=== PATIENT | female | born 1990 | race Caucasian/White ===

== ENCOUNTER → 2017-02-06 | Outpatient (CLI) | payer OTHER ==
[2017-02-06 16:39] LABS: Basophils # (A) 0.1 k/uL (0-0.2); Basophils % (A) 1 %; CH 29.4; CHCM 33.5; Eosinophils # (A) 0.2 k/uL (0-0.7); Eosinophils % (A) 3 %; HDW 2.62; HGB 14.1 gm/dL (11.4-16.0); Luc # (Auto) 0.19; Luc % (Auto) 3; Lymphocytes # (A) 1.8 k/uL (1.0-4.8); Lymphocytes % (A) 25 %; MCH 29.6 pg (25.0-35.0); MCHC 33.5 g/dL (31.0-37.0); MCV 88.3 fL (80.0-100.0); Mean Platelet Volume 7.7; Monocytes # (A) 0.6 k/uL (0-1.0); Monocytes % (A) 8 %; Neutrophils # (A) 4.4 k/uL (1.3-7.7); Neutrophils % (A) 61 %; RBC 4.76 m/uL (3.80-5.40); WBC 7.2 k/uL (3.8-10.6); WBC (Perox) 7.69
[2017-02-06 16:47] LABS: ALT 19 U/L (9-52); AST 20 U/L (14-36); Alkaline Phosphatase 64 U/L (38-126); Amylase 71 U/L (30-110); Anion Gap 12 mmol/L; Blood Urea Nitrogen 7 mg/dL (7-17); Calcium 9.7 mg/dL (8.4-10.2); Carbon Dioxide 27 mmol/L (22-30); Chloride 102 mmol/L (98-107); Glucose 79 mg/dL (74-99); Non-African American GFR(MDRD) >60 (>60 ml/min/1.73 sqM); Potassium 3.7 mmol/L (3.5-5.1); Sodium 141 mmol/L (137-145); Total Bilirubin 0.6 mg/dL (0.2-1.3); Total Protein 7.7 g/dL (6.3-8.2)
== END ==
LOC: MMGSC 11:58
PROVIDERS: ATTEND Family Medicine
DX: R10.9 Unspecified abdominal pain (principal); R11.0 Nausea
CPT/HCPCS: 36415; 80053; 82150; 83690; 85025

== ENCOUNTER → 2018-08-06 | Outpatient (CLI) | payer OTHER ==
--- NOTE | 2018-08-06 09:22 | US ---
EXAMINATION TYPE: US abdomen complete DATE OF EXAM: 08/06/2018 COMPARISON: NONE CLINICAL HISTORY: Abd Pain R10.9 N83.209 ovarian cyst. epigastric pain; on new brand oral contracepti ves EXAM MEASUREMENTS: Liver Length: 16.3 cm Gallbladder Wall: 0.2 cm CBD: 0.2 cm Spleen: 9.9 cm Right Kidney: 11.1 x 4.6 x 4.2 cm Left Kidney: 11.0 x 5.2 x 5.9 cm Pancreas: wnl Liver: mild coarse appearance Gallbladder: wnl Evidence for sonographic Ballard's sign: no CBD: wnl Spleen: wnl Right Kidney: wnl Left Kidney: wnl Upper IVC: wnl Abd Aorta: wnl Visualized liver is slightly heterogeneous on images saved. The intrahepatic portion of the IVC and visualized abdominal aorta are within normal limits. There is no evidence of cholelithiasis. Common bile duct is unremarkable. The visualized portions of the pancreas are homogenous. The spleen is unremarkable. Kidneys are symmetric and free of hydronephros is. No renal lesions are seen. IMPRESSION: No suspicious acute finding is seen to account for patient's symptoms.
--- NOTE | 2018-08-06 09:51 | US ---
EXAMINATION TYPE: US pelvis complete transvag DATE OF EXAM: 08/06/2018 COMPARISON: NONE CLINICAL HISTORY: Abd Pain R10.9 N83.209 ovarian cyst. TECHNIQUE: . Transabdominal sonographic images of the pelvis were acquired. Transvaginal sonographi c images were medically necessary to better assess the following anatomy: Patient opted for TV, she c ould not tolerate filling bladder further. Date of LMP: 06/13/2018 EXAM MEASUREMENTS: Uterus: 8.4 x 3.2 x 5.0 cm Endometrial Stripe: 0.4 cm Right Ovary: 1.3 x 1.9 x 2.4 cm Left Ovary: 1.5 x 1.6 x 2.0 cm 1. Uterus: Anteverted 2. Endometrium: wnl 3. Right Ovary: wnl 4. Left Ovary: wnl 5. Bilateral Adnexa: wnl 6. Posterior cul-de-sac: no free fluid Anteverted heterogeneous uterus is seen. No suspicious thickening of endometrial stripe. No free flui d in pelvic cul-de-sac. Both ovaries are seen on transvaginal investigation. No suspicious extraovari an adnexal mass is noted. IMPRESSION: No significant finding is seen to account for patient's symptoms.
== END | disposition home or self-care (01) ==
LOC: RADUSWWP 08:14
PROVIDERS: ATTEND Family Medicine
DX: R10.9 Unspecified abdominal pain (principal)
CPT/HCPCS: 76700; 76830; 76856

== ENCOUNTER 2018-08-16 22:12 | Emergency (ER) | payer OTHER ==
[2018-08-16 22:17] VITALS: BP 124/75; PULSE 91; RESP 24; TEMP 97.7
--- NOTE | 2018-08-16 22:57 | ED ---
Psych HPI - General Source: patient, family, RN notes reviewed, old records reviewed Mode of arrival: ambulatory - History of Present Illness MD Complaint: suicidal ideation, feels depressed -: unknown Associated Psychiatric Symptoms: suicidal ideation Quality: constant Improves With: medication, therapy Worsens With: none Associated Symptoms: denies other symptoms Treatments Prior to Arrival: none If Self Harm: admits thoughts of self harm <Rodolfo Bush - Last Filed: 08/16/18 22:56> <Chapito Rodney - Last Filed: 08/17/18 02:00> - General Chief Complaint: Psychiatric Symptoms Stated Complaint: Mental Health Time Seen by Provider: 08/16/18 22:56 - History of Present Illness Initial Comments: This is a 28-year-old female the ER for evaluation by psychiatry. Patient's brought in by parents for mental health evaluation she has history of bipolar, patient is coming with suicidal thoughts and ideation, denies drugs rel call use , no recent change in medications. (Rodolfo Bush) - Related Data Home Medications Medication Instructions Recorded Confirmed Folic Acid 0.4 mg PO DAILY 03/06/15 10/30/15 Vit No.124/Iron/Folic 1 each PO DAILY 03/06/15 10/30/15 [ Vitamin Tablet] Sertraline HCl [Zoloft] 50 mg PO DAILY 10/26/15 10/30/15 LORazepam [Ativan] 1 mg PO DAILY PRN 08/16/18 08/16/18 OXcarbazepine [Trileptal] 300 mg PO [id number] 08/16/18 08/16/18 OXcarbazepine [Trileptal] 450 mg PO HS 08/16/18 08/16/18 Allergies Allergy/AdvReac Type Severity Reaction Status Date / Time No Known Allergies Allergy Verified 08/16/18 22:17 Review of Systems ROS Other: All systems not noted in ROS Statement are negative. <Rodolfo Bush - Last Filed: 08/16/18 22:56> ROS Other: All systems not noted in ROS Statement are negative. <Chapito Rodney - Last Filed: 08/17/18 02:00> ROS Statement: Those systems with pertinent positive or pertinent negative responses have been documented in the HPI. Past Medical History Past Medical History: Asthma, Thyroid Disorder History of Any Multi-Drug Resistant Organisms: None Reported Additional Past Surgical History / Comment(s): right knee Past Anesthesia/Blood Transfusion Reactions: No Reported Reaction Past Psychological History: Bipolar Smoking Status: Never smoker Past Alcohol Use History: None Reported Past Drug Use History: None Reported - Past Family History Mother Family Medical History: No Reported History <Rodolfo Bush - Last Filed: 08/16/18 22:56> General Exam Limitations: no limitations General appearance: alert, in no apparent distress Head exam: Present: atraumatic, normocephalic, normal inspection Eye exam: Present: normal appearance, PERRL, EOMI. Absent: scleral icterus, conjunctival injection, periorbital swelling ENT exam: Present: normal exam, mucous membranes moist Neck exam: Present: normal inspection. Absent: tenderness, meningismus, lymphadenopathy Respiratory exam: Present: normal lung sounds bilaterally. Absent: respiratory distress, wheezes, rales, rhonchi, stridor Cardiovascular Exam: Present: regular rate, normal rhythm, normal heart sounds. Absent: systolic murmur, diastolic murmur, rubs, gallop, clicks GI/Abdominal exam: Present: soft, normal bowel sounds. Absent: distended, tenderness, guarding, rebound, rigid Extremities exam: Present: normal inspection, full ROM, normal capillary refill. Absent: tenderness, pedal edema, joint swelling, calf tenderness Back exam: Present: normal inspection Neurological exam: Present: alert, oriented X3, CN II-XII intact Psychiatric exam: Present: normal affect, normal mood Skin exam: Present: warm, dry, intact, normal color. Absent: rash <Rodolfo Bush - Last Filed: 08/16/18 22:56> Course <Rodolfo Bush - Last Filed: 08/16/18 22:56> <Chapito Rodney - Last Filed: 08/17/18 02:00> Vital Signs 08/16/18 22:14 Temperature 97.7 F Pulse Rate 91 Respiratory 24 Rate Blood Pressure 124/75 O2 Sat by Pulse 98 Oximetry - Reevaluation(s) Reevaluation #1: 08/16/18 22:57 Patient will be petitioned by mother (Rodolfo Bush) Reevaluation #2: 08/16/18 22:57 Patient's medically clear for psychiatric evaluation (Rodolfo Bush) Disposition <Rodolfo Bush - Last Filed: 08/16/18 22:56> Is patient prescribed a controlled substance at d/c from ED?: No <Chapito Rodney - Last Filed: 08/17/18 02:00> Clinical Impression: Mood disorder Disposition: HOME SELF-CARE Condition: Good Instructions: Mood Disorders (ED) Referrals: Paola Tamayo MD [Primary Care Provider] - 1-2 days
== END 2018-08-17 02:17 | disposition home or self-care (01) ==
LOC: EC 22:12
DX: F39 Unspecified mood [affective] disorder (principal); R45.851 Suicidal ideations; F31.9 Bipolar disorder, unspecified; Z79.899 Other long term (current) drug therapy
CPT/HCPCS: 82075; 99285

== ENCOUNTER 2018-11-15 17:42 | Emergency (ER) | payer OTHER ==
[2018-11-15] MEDS ORDERED: ONDANSETRON 4 MG/2 ML VIAL IVP STA (18:26)
[2018-11-15] MEDS ORDERED: KETOROLAC 30 MG/ML 1 ML VIAL IVP STA (18:26)
[2018-11-15] MEDS ORDERED: SODIUM CHLORIDE 0.9% 1,000 ML IV ONE (18:26)
[2018-11-15 19:23] LABS: Basophils % (A) 0 %; Eosinophils # (A) 0.3 k/uL (0-0.7); Eosinophils % (A) 4 %; HCT 39.1 % (34.0-46.0); HGB 13.2 gm/dL (11.4-16.0); Lymphocytes # (A) 2.4 k/uL (1.0-4.8); Lymphocytes % (A) 31 %; MCHC 33.8 g/dL (31.0-37.0); MCV 85.9 fL (80.0-100.0); Mean Platelet Volume 6.7; Monocytes # (A) 0.5 k/uL (0-1.0); Monocytes % (A) 6 %; Neutrophils # (A) 4.4 k/uL (1.3-7.7); Neutrophils % (A) 56 %; Platelet Count 258 k/uL (150-450); RBC 4.55 m/uL (3.80-5.40); RDW 12.4 % (11.5-15.5); WBC 7.9 k/uL (3.8-10.6)
[2018-11-15 19:31] LABS: ALT 15 U/L (9-52); AST 16 U/L (14-36); Alkaline Phosphatase 38 U/L (38-126); Anion Gap 7 mmol/L; Bilirubin,Unconjugated 0.3 mg/dL (0.0-1.1); Blood Urea Nitrogen 11 mg/dL (7-17); Calcium 9.5 mg/dL (8.4-10.2); Carbon Dioxide 26 mmol/L (22-30); Chloride 106 mmol/L (98-107); Glucose 96 mg/dL (74-99); HCG,Qualitative Serum Not Detected; Lipase 87 U/L (23-300); Sodium 139 mmol/L (137-145); Total Bilirubin 0.3 mg/dL (0.2-1.3); Total Protein 7.1 g/dL (6.3-8.2)
--- NOTE | 2018-11-15 19:38 | ED ---
Chest Pain HPI - General Chief Complaint: Chest Pain Stated Complaint: Nausea/vomiting/chest pain Time Seen by Provider: 11/15/18 18:08 Source: patient Mode of arrival: ambulatory Limitations: no limitations - History of Present Illness Initial Comments: 28-year-old female presenting with nausea and left-sided sharp chest pain. Patient states her symptoms began with nausea this afternoon. She denies any episodes of vomiting, abdominal pain, fevers chills, urinary symptoms, chance of . Last menstrual period was 11/04/2018. States left sided chest pain started while at rest, was accompanied by lightheadedness but she denied any diaphoresis, radiation of the chest pain. She does admit to progressive worsening shortness of breath over the last 3 months and she is started her oral control. She denies any lower extremity swelling or history of DVT PE/active cancer/recent surgery. - Related Data Home Medications Medication Instructions Recorded Confirmed LORazepam [Ativan] 1 mg PO BID PRN 08/16/18 11/15/18 Lessina 0.1/0.02 1 tab PO DAILY 11/15/18 11/15/18 Levothyroxine Sodium [Synthroid] 75 mcg PO DAILY 11/15/18 11/15/18 OXcarbazepine [Trileptal] 300 mg PO QAM 11/15/18 11/15/18 OXcarbazepine [Trileptal] 450 mg PO HS 11/15/18 11/15/18 Previous Rx's Medication Instructions Recorded Ondansetron Odt [Zofran Odt] 4 mg PO Q12HR PRN #10 tab 11/15/18 Allergies Allergy/AdvReac Type Severity Reaction Status Date / Time No Known Allergies Allergy Verified 11/15/18 18:59 Review of Systems ROS Statement: Those systems with pertinent positive or pertinent negative responses have been documented in the HPI. Review of Systems Constitutional: Denies fever, chills Eyes: Denies change in vision, Denies pain Ears, nose, mouth, throat: Denies headaches, Denies sore throat Cardiovascular: Positive chest pain. Denies palpitations Respiratory: Denies shortness of breath, Denies cough Gastrointestinal: Denies abdominal pain. Positive nausea, vomiting. Denies diarrhea. Genitourinary: Denies hematuria, Denies infections Musculoskeletal: Denies pain, Denies swelling Integumentary: Denies rash Neurological: Denies headache, focal weakness, focal numbness Psychiatric: Denies anxiety, Denies depression Hematologic/Lymphatic: Denies easy bleeding or bruising ROS Other: All systems not noted in ROS Statement are negative. EKG Findings - EKG Comments: EKG Findings:: EKG shows normal sinus rhythm at a rate of [address] segment elevation, depression. No prolonged QT/QTc or KS interval. No dysrythmia noted. KS interval 150 ms, QRS duration 84 ms, QT/QTC 410/433 ms. Past Medical History Past Medical History: Asthma, Thyroid Disorder History of Any Multi-Drug Resistant Organisms: None Reported Additional Past Surgical History / Comment(s): right knee Past Anesthesia/Blood Transfusion Reactions: No Reported Reaction Past Psychological History: Anxiety, Bipolar Smoking Status: Never smoker Past Alcohol Use History: None Reported, Occasional Past Drug Use History: Marijuana - Past Family History Mother Family Medical History: No Reported History General Exam - General Exam Comments Initial Comments: General: Awake, alert, No acute Distress HENT: Normocephalic. Atraumatic Eyes: PERRL. EOMI. No scleral icterus. No injected conjunctiva Neck: Full ROM Chest/Lungs: Clear to auscultation bilaterally. No wheezing, rhonchi, or rales Cardiac: Regular rate, rhythm. No murmurs or rubs Abdomen/GI: Soft, nontender, nondistended. No rebound, guarding, or rigidity. Musculoskeletal: Full ROM Skin: Warm, dry, intact Neurologic: A/Ox3, no weakness, no sensory deficit, no abnormal gait, no coordination deficit Limitations: no limitations Course Vital Signs 11/15/18 17:48 Temperature 98.4 F Pulse Rate 86 Respiratory 18 Rate Blood Pressure 119/80 O2 Sat by Pulse 96 Oximetry Chest Pain MDM - MDM 28-year-old female presenting with chest pain and nausea. Initial exam the patient is awake, alert, no acute distress. VSS. EKG was negative for acute process. Patient's laboratory workup was unremarkable. She was PERC positive with a Wells score 0. Patient has no history of hypertension, hypercholesterolemia, tobacco abuse, or family history of early cardiac disease. Her symptoms are not suggestive of an anginal type chest pain. At this time there is no indication for troponins. Patient's d-dimer was negative. Her symptoms resolved while in the department. This time the patient 's symptoms are not consistent with ACS, aortic dissection, PE, PNA, or PTX. She is well appearing for discharge. No further emergent workup indicated. The patient was given return to ED instructions. They were instructed to follow up with their primary care provider. Stable for discharge at this time. - Wells Criteria Clinical Symptoms of DVT: (0) No No Alternative Diagnosis: (0) No Immobilization of Surgery in Previous 4 Weeks: (0) No Previous DVT/PE: (0) No Hemoptysis: (0) No Malignancy: (0) No - PERC Rule Heart Rate < 100: (0) No g: (0) No No Prior History pf DVT/PE: (0) No No Recent Trauma or Surgery: (0) No Hemoptysis: (0) No No Exogenous Estrogen: (1) Yes Disposition Clinical Impression: Chest pain, Nausea Disposition: HOME SELF-CARE Condition: Good Instructions: Chest Pain (ED), Acute Nausea and Vomiting (ED) Prescriptions: Ondansetron Odt [Zofran Odt] 4 mg PO Q12HR PRN #10 tab PRN Reason: Nausea Is patient prescribed a controlled substance at d/c from ED?: No
--- NOTE | 2018-11-15 20:24 | XR ---
EXAMINATION TYPE: XR chest 2V DATE OF EXAM: 11/15/2018 COMPARISON: NONE HISTORY: Chest pain TECHNIQUE: Frontal and lateral views of the chest are obtained. FINDINGS: Heart and mediastinum are normal. Lungs are clear. Diaphragm is normal. Bony thorax appear s normal. IMPRESSION: Normal chest
[2018-11-15 21:41] VITALS: BP 107/56; PULSE 72; RESP 16; TEMP 98
== END 2018-11-15 21:41 | disposition home or self-care (01) ==
LOC: EC 17:42
DX: R07.9 Chest pain, unspecified (principal); R11.0 Nausea; R42 Dizziness and giddiness; E07.9 Disorder of thyroid, unspecified; Z79.899 Other long term (current) drug therapy; Z79.3 Long term (current) use of hormonal contraceptives
CPT/HCPCS: 36415; 93005; 85379; 80048; 80076; 83690; 85025; 84703; 71046; 99285; 96374; 96375; 96361; J2405; J1885

== ENCOUNTER → 2023-12-25 | Outpatient (CLI) | payer OTHER ==
--- NOTE | 2023-12-25 11:56 | MR ---
EXAMINATION TYPE: MR knee LT wo con DATE OF EXAM: 12/25/2023 COMPARISON: Outside X-ray 12/16/2023 . HISTORY: Left knee pain, anterior/sub patellar aspect. No hx trauma. TECHNIQUE: Multiplanar, multisequence imaging of the left knee is performed without IV contrast. FINDINGS: MEDIAL MENISCUS: There is obliquely oriented in 3 3 abnormal signal in the posterior horn medial meni scus LATERAL MENISCUS: Anterior and posterior horns are intact without tear. CRUCIATE LIGAMENTS: The anterior and posterior cruciate ligaments are intact and unremarkable. COLLATERAL LIGAMENTS: The medial collateral ligament and lateral collateral ligament complex are inta ct and unremarkable. EXTENSOR MECHANISM: Visualized quadriceps and patellar tendons are intact. EFFUSION: Small suprapatellar joint effusion. Mild increased signal in the infrapatellar space\Hoffa 's fat pad. POPLITEAL CYST: No popliteal/aguilar cyst. TRICOMPARTMENT SPACES: There is loss focally of the cartilage of the medial articular tibia and femur compatible with chondromalacia. No definite free fragments seen. There is adjacent marrow edema with in the medial tibial plateau likely reactive. Grade 2 signal lateral patellar chondromalacia. Slight there is a small amount of edema along the posterior margin of the posterior medial femoral condyle i s nonspecific. IMPRESSION: 1. There is an area of marrow edema involving the medial tibial plateau adjacent to an area of locali zed chondromalacia of the articular surface of the tibia and femur. This likely is reactive. Bone con tusion in the differential diagnosis. 2. Posterior horn medial meniscal tear. 3. Lateral patellar cartilage grade 2 chondromalacia. 4. There is subtle edema in the infrapatellar space\Hoffa's fat pad correlate for fat pad impingement syndrome. 5. Intraosseous lesion of the distal femur noted by previous x-ray of the knee 12/16/2003 is not inclu ded in the [id number].
== END | disposition home or self-care (01) ==
LOC: RADMRIMAIN 10:56
PROVIDERS: ATTEND Orthopaedic Surgery
DX: M23.322 Other meniscus derangements, posterior horn of medial meniscus, left knee (principal); M22.42 Chondromalacia patellae, left knee; M85.852 Other specified disorders of bone density and structure, left thigh; R60.0 Localized edema

== ENCOUNTER → 2024-01-09 | Outpatient (CLI) | payer OTHER ==
[2024-01-09 18:20] LABS: Basophils # (A) 0.03 X 10*3/uL (0.00-0.10); Basophils % (A) 0.4 %; Eosinophils % (A) 1.2 %; HCT 42.5 % (37.2-46.3); HGB 14.2 g/dL (12.0-15.0); Lymphocytes # (A) 2.35 X 10*3/uL (0.90-5.00); MCH 30.4 pg (27.0-32.0); MCHC 33.4 g/dL (32.0-37.0); Mean Platelet Volume 9.4 FL (9.5-12.2); Monocytes # (A) 0.64 X 10*3/uL (0.20-1.00); Monocytes % (A) 7.9 %; NRBC Per 100 WBC 0 X 10*3/uL (0.00-0.01); Neutrophils # (A) 4.96 X 10*3/uL (1.80-7.70); Neutrophils % (A) 61.4 %; Platelet Count 364 X 10*3/uL (140-440); RBC 4.67 X 10*6/uL (4.10-5.20); RDW 12.7 % (11.5-14.5); WBC 8.09 X 10*3/uL (4.50-10.00)
[2024-01-10 03:05] LABS: Anion Gap 12.3 mmol/L (4.00-12.00); Carbon Dioxide 25.7 mmol/L (21.6-31.8); Potassium 3.6 mmol/L (3.5-5.5)
== END | disposition home or self-care (01) ==
LOC: LABPAT 15:59
PROVIDERS: ATTEND Orthopaedic Surgery
DX: Z01.812 Encounter for preprocedural laboratory examination (principal); M23.92 Unspecified internal derangement of left knee
CPT/HCPCS: 80051; 85025

== ENCOUNTER 2024-01-26 05:47 | Day surgery (SDC) | payer OTHER ==
--- NOTE | 2024-01-25 16:52 | HP ---
HISTORY AND PHYSICAL DATE OF SURGERY: 01/26/2024. HISTORY OF PRESENT ILLNESS: Lamar Lebron is a 33-year-old patient, seen with progressive left knee pain. We discussed options regarding treatment. She elected to proceed left knee arthroscopy. Consents obtained. PAST MEDICAL HISTORY: Hypothyroidism, gastroesophageal reflux disease. PAST SURGICAL HISTORY: Right knee arthroscopy. DAILY MEDICATIONS: 1. Pantoprazole. 2. Trileptal. 3. Tylenol. ALLERGIES: None. SOCIAL HISTORY: She denies tobacco use. PHYSICAL EVALUATION OF THE LEFT KNEE: Her range of motion is +1/0 to 135 degrees. She has mild effusion. Tenderness along the medial joint line. Positive medial Margie's. Ligaments are stable. Hip rotation is without pain. Her distal neurovascular exam is intact. IMAGING STUDIES: Radiographs of the left knee revealed no osseous abnormality. MRI of left knee revealed medial meniscal tear and patellar chondromalacia. IMPRESSION: 1. Internal derangement of left knee with medial meniscal tear. 2. Left knee patellar chondromalacia. PLAN: Left knee arthroscopy with partial medial meniscectomy and debridement. MMODL / IJN: [id number] /
[2024-01-26] MEDS: MIDAZOLAM 2 MG/2 ML VIAL IVP ONE (07:15)
[2024-01-26] MEDS: DEXAMETHASONE SOD PHOSPHATE 4 MG/ML 1 ML VIAL IVP ONE (07:15)
[2024-01-26] MEDS: ONDANSETRON 4 MG/2 ML VIAL ONE (07:15)
[2024-01-26] MEDS: LACTATED RINGERS 1,000 ML IV ONE ×2 (07:20→09:28)
[2024-01-26] MEDS ORDERED: fentaNYL (PF) 50 MCG/ML 2 ML AMP ONE (07:25)
[2024-01-26] MEDS ORDERED: SUCCINYLCHOLINE CHLORIDE 200 MG/10 ML VIAL IV ONE (07:25)
[2024-01-26] MEDS ORDERED: MIDAZOLAM 2 MG/2 ML VIAL ONE (07:25)
[2024-01-26] MEDS ORDERED: LIDOCAINE 1% INJ 10MG/ML (20 ML MDV) ONE (07:25)
[2024-01-26] MEDS ORDERED: KETOROLAC 15 MG/ML 1 ML VIAL ONE (07:25)
[2024-01-26] MEDS ORDERED: PROPOFOL 10 MG/ML 20 ML VIAL IV ONE (07:25)
[2024-01-26] MEDS: BUPIVACAINE (PF) 0.25% 30 ML VIAL SQ ONE ×2 (07:52→08:10)
--- NOTE | 2024-01-26 08:26 | P.OP ---
Date of Procedure: 01/26/24 Preoperative Diagnosis: Internal derangement left knee Postoperative Diagnosis: 1. Tear medial meniscus left knee 2. Reactive synovitis medial, lateral and suprapatellar compartments left knee 3. Loose body left knee 4. Partial ACL tear left knee 5. 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 Arthroscopic partial medial meniscectomy left knee 2. Arthroscopic partial synovectomy medial, lateral and suprapatellar compartments left knee 3. Arthroscopic removal 1 cm loose body left knee 4. Arthroscopic debridement partial ACL tear left knee 5. Arthroscopic chondroplasty medial femoral condyle left knee Anesthesia: AIDENA, local Surgeon: Adam Rich Estimated Blood Loss (ml): 5 Pathology: none sent Condition: stable Disposition: PACU Indications for Procedure: 33-year-old patient who was seen with progressive left knee pain. After having treatment options discussed, she elected to proceed with arthroscopy. Operative Findings: See description of procedure Description of Procedure: Patient was taken to the operative suite. Patient underwent a general anesthetic by the department of anesthesia. Patient was given preoperative antibiotics. The left lower extremity was placed in a well-padded arthroscopic leg simons. The left leg was prepped and draped in the normal sterile orthopedic fashion. A lateral parapatellar and suprapatellar incision was made. Trochars were inserted. Arthroscopy was initiated. Suprapatellar pouch revealed diffuse thick reactive synovitis. The patellofemoral joint appeared to articular congruently. There was grade I chondromalacia of the patella with no significant tearing. The scope was guided into the medial gutter. No loose bodies or plica were identified. The scope was then guided into the medial compartment. A medial parapatellar incision was made. Trocar inserted followed by probe. I immediately encountered a loose body in the medial compartment. I introduced my loose body forceps and retrieved this 1 cm loose body and removed without difficulty. There was a complex tear involving the posterior horn of the medial meniscus which extends to the mid body. There was an area of grade II chondromalacia medial femoral condyle with osteochondral flap tears present. There was thick reactive synovitis anteriorly. I performed a partial medial meniscectomy getting down to stable meniscal tissue. I performed a chondroplasty of the medial femoral condyle getting down to stable osteochondral tissue. I performed a partial synovectomy decompressing the reactive synovitis. The residual meniscus was stable. The residual osteochondral surface was stable. There was good decompression of the synovitis. Scope and probe were then guided into the intercondylar notch. Cruciates were identified, probed and found to have some partial tearing of the anterior cruciate ligament. I debrided that down getting down to stable ligament. The residual ligament was under 50% but appeared stable.. The scope and probe were then guided into lateral compartment. Lateral meniscus was probed and was found to be stable. There was no significant chondromalacia present lateral compartment. There was some thick reactive synovitis anteriorly. I used a motorized shaver and performed a partial synovectomy. The shaver was removed. There was good decompression of the synovitis. The scope was in guided back into the suprapatellar compartment. I introduced a motorized shaver into the suprapatellar compartment. I debrided some piecemeal fragments of meniscus that I encountered. I performed a partial synovectomy. The shaver was removed. There was good decompression of the synovitis. I now took 1 more look around the entire knee, no residual debris. Instruments were now removed from the sergio nt. The joint was infiltrated with .25% Marcaine. Steri-Strips were applied to the portal sites. Sterile dressings were applied. The patient was placed into a TIM hose. No tourniquet was utilized. The patient was awakened, transferred to a bed and taken to recovery stable satisfactory condition.
[2024-01-26] MEDS: HYDROmorphone 0.5 MG/0.5 ML SYRINGE IVP ONE (08:32)
[2024-01-26] MEDS ORDERED: ONDANSETRON 4 MG/2 ML VIAL IVP ONE (08:43)
[2024-01-26] MEDS ORDERED: LACTATED RINGERS 1,000 ML IV SCH (08:43)
[2024-01-26] MEDS ORDERED: DEXAMETHASONE SOD PHOSPHATE 4 MG/ML 1 ML VIAL IV ONE (08:43)
[2024-01-26] MEDS ORDERED: MIDAZOLAM 2 MG/2 ML VIAL IV PRN (08:43)
[2024-01-26 08:49] VITALS: RESP 16; TEMP 97
[2024-01-26] MEDS: HYDROmorphone 0.5 MG/0.5 ML SYRINGE IVP PRN (08:50)
[2024-01-26] MEDS ORDERED: HYDROcodone/APAP 5-325MG 1 EACH TAB ONE (09:38)
[2024-01-26] MEDS: HYDROcodone/APAP 5-325MG 1 EACH TAB PO ONE (09:39)
[2024-01-26] MEDS: ONDANSETRON ODT 4 MG TAB PO ONE (10:20)
[2024-01-26 10:36] VITALS: BP 121/81; PULSE 82
== END 2024-01-26 10:33 | disposition home or self-care (01) ==
LOC: OR 05:47
PROVIDERS: ATTEND Orthopaedic Surgery
DX: S83.242A Other tear of medial meniscus, current injury, left knee, initial encounter (principal); S83.512A Sprain of anterior cruciate ligament of left knee, initial encounter; M65.162 Other infective (teno)synovitis, left knee; M94.262 Chondromalacia, left knee; J45.909 Unspecified asthma, uncomplicated; E03.9 Hypothyroidism, unspecified; K21.9 Gastro-esophageal reflux disease without esophagitis; F41.9 Anxiety disorder, unspecified; F32.A Depression, unspecified; M23.42 Loose body in knee, left knee; Z79.899 Other long term (current) drug therapy; Z79.890 Hormone replacement therapy; Z79.51 Long term (current) use of inhaled steroids; X58.XXXA Exposure to other specified factors, initial encounter
CPT/HCPCS: 81025; 29881; J2250; J0330; J1100; J2405; J2001; J3010; J1885; J2704; J1170; J0665